=== PATIENT | female | born 1960 | race Caucasian/White ===

== ENCOUNTER → 2017-07-30 | Outpatient (CLI) | payer OTHER ==
[~2017-07-30] MED LIST: AMOX-559 PO; ATOR20TA22 PO; CALC-18 PO; CHOL200021 PO; CIP500 PO; FERR324T23 PO; FEXO30TA36 PO; FLU10 PO; HYDR-4309 PO; INUL1TAB PO; LOPE1TAB PO; LORA-799 PO; MECL25TA9 PO; MES400 PO; METR-1 PO; MULT1TAB64 PO; ONDA4TAB PO; PRO25 PO; PROBIOTIC PO; RANI-366 PO; SIMV-49 PO; SIMV5TAB60 PO; [UNRECOGNIZED DRUG - CODE] PO; [UNRECOGNIZED DRUG - CODE] PR
[2017-07-30 09:39] LABS: PLATELET COUNT, AUTOMATED 210 K/uL (150-450)
== END ==
LOC: LAB 09:23
PROVIDERS: ATTEND Emergency Medicine
DX: E55.9 Vitamin D deficiency, unspecified (principal); R53.83 Other fatigue
CPT/HCPCS: 36415; 82306; 85025

== ENCOUNTER → 2017-08-18 | Outpatient (CLI) | payer OTHER | LOC: RESP 01:38 | PROVIDERS: ATTEND Emergency Medicine | DX: G47.33 Obstructive sleep apnea (adult) (pediatric) (principal) ==

== ENCOUNTER → 2017-08-21 | Outpatient (CLI) | payer OTHER ==
--- NOTE | 2017-08-21 15:09 | RADIOLOGY IMAGING REPORT ---
FACILITY: [facility] PATIENT NAME: MICHELE BROOKS : [id number] MR: [id number] V: [id number] EXAM DATE: ORDERING PHYSICIAN: LOGAN BAXTER TECHNOLOGIST: Hanane Vizcaino PROCEDURE:BILATERAL DIGITAL SCREENING MAMMOGRAM WITH CAD ASSISTED INTERPRETATION & 3D TOMOSYNTHESIS COMPARISON:Prior mammograms 06/26/16, 06/26/15, 06/23/14, 06/01/14, 04/01/12, 03/12/11. INDICATIONS:SCREENING FINDINGS: Moderately dense fibroglandular tissue is seen throughout the breasts. The parenchymal pattern has remained stable allowing for difference in mammographic technique & patient positioning. There is no evidence of malignant appearing mass, malignant appearing calcifications or other secondary sign of malignancy in either breast. DIAGNOSTIC CATEGORY 1--NEGATIVE. RECOMMENDATIONS: ROUTINE MAMMOGRAM AND CLINICAL EVALUATION. IMPRESSION: BIRADS 1: Negative. No significant abnormality is seen. Dictated by: Ana Monet M.D. on 08/21/2017 at 14:40 Transcribed by: ERIC on 08/21/2017 at 14:46 Approved by: Ana Monet M.D. on 08/21/2017 at 15:08 [facility]
== END ==
LOC: MAMO 01:56
PROVIDERS: ATTEND Emergency Medicine
DX: Z12.31 Encounter for screening mammogram for malignant neoplasm of breast (principal)
CPT/HCPCS: 77063; 77067

== ENCOUNTER 2017-10-12 11:40 | Emergency (ER) | payer OTHER ==
--- NOTE | 2017-10-12 11:52 | ER Report ---
History and Physical Time Seen By MD: 11:52 HPI/ROS 57-year-old female with a mechanical fall. She fell onto her right wrist, right knee and the right forehead. No loss of consciousness. No neck pain. No focal neuro deficits, weakness, or numbness. She does not take any anticoagulant medications. Rolf of her pain upon presentation is in her right wrist. Remainder of the 14 system rev: Yes Allergies: Coded Allergies: cefaclor (Verified Allergy, Intermediate, 10/12/17) propoxyphene (Verified Allergy, Mild, NAUSEA, 10/12/17) Uncoded Allergies: LACTASE (Allergy, Mild, SINUS PROBLEMS, 09/25/11) Home Meds Active Scripts Tramadol Hcl (TRAMADOL HCL) 50 Mg Tablet, 50 MG PO Q6H Y for PAIN, #12 TAB 0 Refills Prov:FRANCESCO THAKKAR MD 10/12/17 Atorvastatin Calcium (LIPITOR) 20 Mg Tablet, 1 TAB PO QDAY for 90 Days, #90 TAB 3 Refills Prov:JOANNE BRONSON MD 01/30/17 Reported Medications Ferrous Fumarate (FERROUS FUMARATE) 324 Mg Tablet, 324 MG PO DAILY 07/30/17 Ranitidine Hcl (ZANTAC) 150 Mg Tablet, 150 MG PO PRN, TAB 12/10/16 Loratadine (CLARITIN) 10 Mg Tab.rapdis, 10 MG PO PRN 12/10/16 Fluoxetine Hcl (Prozac) 10 Mg Cap, 20 MG PO QDAY, #20 0 Refills 03/15/09 Reviewed Nurses Notes: Yes Old Medical Records Reviewed: Yes Hx Smoking: No Smoking Status: Never Smoker Exposure to Second Hand Smoke?: Yes (Father smoked) Constitutional Vital Sign - Last 24 Hours 10/12/17 10/12/17 10/12/17 10/12/17 11:55 11:58 11:59 12:02 Temp 97.8 Pulse ??? 53 Resp 16 B/P (MAP) 95/49 95/49 (64) 93/56 (68) Pulse Ox 99 O2 Delivery Room Air 10/12/17 10/12/17 10/12/17 10/12/17 12:10 12:25 12:30 12:40 Pulse 57 59 ??? B/P (MAP) 98/57 (71) Pulse Ox 98 97 10/12/17 10/12/17 10/12/17 8/13/18 12:55 13:00 13:15 13:30 Pulse ? 66 ??? B/P (MAP) 111/62 (78) 96/54 (68) Pulse Ox 97 10/12/17 10/12/17 10/12/17 10/12/17 13:45 14:00 14:15 14:30 Pulse 65 58 ? B/P (MAP) 99/59 (72) ???/??? (1665) Pulse Ox 98 97 10/12/17 10/12/17 10/12/17 10/12/17 14:45 14:50 15:00 15:05 Pulse 76 68 76 B/P (MAP) 108/60 (76) Pulse Ox 96 95 96 10/12/17 10/12/17 10/12/17 10/12/17 15:20 15:30 15:35 15:50 Pulse 79 72 72 B/P (MAP) 107/68 (81) Pulse Ox 97 98 97 10/12/17 10/12/17 10/12/17 16:00 16:04 16:05 Pulse ??? B/P (MAP) ???/??? (1665) 112/55 (74) Physical Exam General Appearance: The patient is alert, has no immediate need for airway protection and no current signs of toxicity. HEENT: abrasion, small hematoma to right forehead. PERRIL, EOMI Respiratory: Chest is non tender, lungs are clear to auscultation. Cardiac: regular rate and rhythm Gastrointestinal: Abdomen is soft and non tender, no masses, bowel sounds normal. Musculoskeletal: TTP and deformity of the right wrist. Mild TTP of the right patella Neck: Neck is supple and non tender. Extremities other than her right wrist have full range of motion and are non tender. n/v in tact throughout Skin: No rashes or lesions. DIFFERENTIAL DIAGNOSIS: After history and physical exam differential diagnosis was considered for intracranial hemorrhage, concussion, fractures, dislocation, intra-abdominal trauma Medical Decision Making EKG/Imaging Imaging X-ray: CXR, right wrist, right patella was obtained. I viewed the images myself on the PACS system. My interpretation of the images is: fracture of right distal radius. The radiologist interpretation had no clinically significant variation from this interpretation. Results: CT scan of the right wrist was obtained. The results of the study are intra- articular fracture of the distal radius and fracture of the trapezium. The study was read by the radiologist. I viewed the images myself on the PACS system. ED Course/Re-evaluation ED Course Mechanical fall and subsequent right distal radius fracture as well as trapezium fracture. She is neurovascularly intact both before and after splint placement. His is likely a surgical fracture. I recommended follow-up with either Dr. Cutler or Dr. Bull for discussion of definitive management. Procedure Procedure: Splint placement. A short arm splint was applied by the equipment tech. After application of the splint I returned and re-examined the patient. The splint was adequately immobilizing the joint and distal to the splint the patient's circulation and sensation was intact. Decision to Disposition Date: Oct 12, 2017 Decision to Disposition Time: 15:46 Depart Departure Latest Vital Signs Vital Signs Date Time Temp Pulse Resp B/P (MAP) Pulse Ox O2 Delivery O2 Flow Rate FiO2 10/12/17 16:05 ??? 10/12/17 16:04 112/55 (74) 10/12/17 15:50 97 10/12/17 11:58 97.8 16 Room Air Impression: Primary Impression: Distal radius fracture, right Additional Impression: Trapezium bone fracture, closed Condition: Improved Disposition: HOME OR SELF-CARE Referrals: JEREMY BULL MD, MARK MD New Scripts Tramadol Hcl (TRAMADOL HCL) 50 Mg Tablet 50 MG PO Q6H Y for PAIN, #12 TAB 0 Refills Prov: FRANCESCO THAKKAR MD 10/12/17 Patient Instructions: Wrist Fracture in Adults (ED) Problem Qualifiers Primary Impression: Distal radius fracture, right Encounter type: initial encounter Fracture type: closed Fracture morphology : other intra-articular Qualified Codes: S52.571A - Other intraarticular fracture of lower end of right radius, initial encounter for closed fracture Additional Impression: Trapezium bone fracture, closed Encounter type: initial encounter Fracture alignment: nondisplaced Laterality: right Qualified Codes: S62.174A - Nondisplaced fracture of trapezium [larger multangular], right wrist, initial encounter for closed fracture FRANCESCO THAKKAR MD Oct 12, 2017 11:52
--- NOTE | 2017-10-12 13:36 | RADIOLOGY IMAGING REPORT ---
FACILITY: [facility] [place] PATIENT NAME: Josefina Drake : 1960 MR: [id number] V: [id number] EXAM DATE: ORDERING PHYSICIAN: FRANCESCO THAKKAR TECHNOLOGIST: Location: Patient: Josefina Drake : 1960 Visit/Account:[id number] Date of Sevice: 10/12/2017 CT Head without contrast Indication: Head trauma after fall. Comparison: 08/06/2015. Technique: Axial CT images were obtained through the brain from the skull base to the vertex without administration of IV contrast. Reformatted coronal and sagittal images were also obtained. One of the following dose optimization techniques was utilized in the performance of this exam: autom ated exposure control; adjustment of the mA and/or kV according to the patient's size; or use of an i terative reconstruction technique. Specific details can be referenced in the facility's radiology CT exam operational policy. Findings: No evidence of mass, mass effect, or midline shift. No acute intracranial hemorrhage or acute territorial infarction. No extra-axial fluid collection or hydrocephalus. No abnormal density. Moncada/white matter differentiat ion appears normal. Bony structures show no fractures or lesions. Minimal fluid seen in the left sphenoid sinus. The remaining sinuses and mastoids visualized are janet r. Mild rightward deviation nasal septum. IMPRESSION: 1. No acute intracranial abnormality. No fracture. 2. Minimal left sphenoid sinus disease. Report Dictated By: Lance Flores at 10/12/2017 1:28 PM Report E-Signed By: Lance Flores at 10/12/2017 1:32 PM WSN:[id number]
--- NOTE | 2017-10-12 13:39 | RADIOLOGY IMAGING REPORT ---
[place] [facility] [place]IENT NAME: Josefina Drake : 1960 MR: [id number] V: [id number] EXAM DATE: ORDERING PHYSICIAN: FRANCESCO THAKKAR TECHNOLOGIST: Location: [facility] Patient: Josefina Drake : 1960 Visit/Account:[id number] Date of Sevice: 10/12/2017 2 VIEWS CHEST INDICATION: Fall onto right side. COMPARISON: None available FINDINGS: Cardiomediastinal silhouette and pulmonary vessels within normal limits. There is no focal infiltrate or lobar consolidation. There is no pneumothorax or pleural effusion. No nodule. Upper abdomen is unremarkable. No acute bony abnormality. IMPRESSION: 1. No acute cardiopulmonary process. No indication of thoracic trauma. Report Dictated By: Lance Flores at 10/12/2017 1:32 PM Report E-Signed By: Lance Flores at 10/12/2017 1:34 PM WSN:[id number]
[2017-10-12] MEDS ORDERED: IBUPROFEN 600 MG TAB TH PO ONE (14:00)
[2017-10-12] MEDS ORDERED: IBUPROFEN 600 MG TAB PO ONE (14:10)
--- NOTE | 2017-10-12 14:10 | RADIOLOGY IMAGING REPORT ---
FACILITY: [facility] PATIENT NAME: Josefina Drake : 1960 MR: [id number] V: [id number] EXAM DATE: ORDERING PHYSICIAN: FRANCESCO THAKKAR TECHNOLOGIST: Location: [facility] [place] Patient: Josefina Drake : 1960 Visit/Account:[id number] Date of Sevice: 10/12/2017 FOREARM RIGHT Indication: Right forearm pain after fall. Comparison: None available Findings: 2 views of the right forearm shows a distal radial fracture which is mainly a vertical type fracture the anterior medial radius this appears to extend into the articular surface with some distraction se en anteriorly. No other indication of fracture or dislocation. No bony lesions. No periosteal abnorma lity. Soft tissues show mild edema around the wrist. No radiopaque foreign body. IMPRESSION: 1. Right distal radial fracture with mild distraction. Report Dictated By: Lance Flores at 10/12/2017 2:03 PM Report E-Signed By: Lance Flores at 10/12/2017 2:06 PM WSN:[id number]
--- NOTE | 2017-10-12 14:13 | RADIOLOGY IMAGING REPORT ---
FACILITY: [facility] PATIENT NAME: Josefina Drake : 1960 MR: [id number] V: [id number] EXAM DATE: ORDERING PHYSICIAN: FRANCESCO THAKKAR TECHNOLOGIST: Location: [facility] Patient: Josefina Drake : 1960 Visit/Account:[id number] Date of Sevice: 10/12/2017 WRIST RIGHT MIN 3 VIEW Indication: Right wrist pain after fall. Comparison: None Available Findings: 3 views of the right wrist. The distal radius does show a mildly distracted fracture the anterior med ial aspect which extends to the articular surface. No other fracture or dislocation. No bony lesion o r periosteal abnormality. No significant degenerative changes. Soft tissue swelling. No radiopaque fo reign body. IMPRESSION: 1. Distal right radial fracture with mild distraction. Report Dictated By: Lance Flores at 10/12/2017 2:07 PM Report E-Signed By: Lance Flores at 10/12/2017 2:08 PM WSN:[id number]
--- NOTE | 2017-10-12 14:15 | RADIOLOGY IMAGING REPORT ---
[place] [facility] [place] Josefina Drake : 1960 MR: [id number] V: [id number] EXAM DATE: ORDERING PHYSICIAN: FRANCESCO THAKKAR TECHNOLOGIST: Location: [facility] [place] Patient: Josefina Darke : 1960 Visit/Account:[id number] Date of Sevice: 10/12/2017 KNEE 3 VIEW RIGHT Indication: Right knee pain after fall. Comparison: 06/04/2014. Findings: 3 views right knee were obtained. No fracture or dislocation. No joint effusion. No bony lesion. No significant degenerative changes. S oft tissues are unremarkable. IMPRESSION: 1.No acute osseous abnormality of the right knee Report Dictated By: Lance Flores at 10/12/2017 2:08 PM Report E-Signed By: Lance Flores at 10/12/2017 2:10 PM WSN:[id number]
--- NOTE | 2017-10-12 15:04 | RADIOLOGY IMAGING REPORT ---
FACILITY: [facility] PATIENT NAME: Josefina Drake : 1960 MR: [id number] V: [id number] EXAM DATE: ORDERING PHYSICIAN: FRANCESCO THAKKAR TECHNOLOGIST: Location: [facility] [place] Patient: Josefina Drake : 1960 Visit/Account:[id number] Date of Sevice: 10/12/2017 WRIST RIGHT W/O CONTRAST COMPARISON: Right wrist and forearm radiographs October 12, 2017 HISTORY: Intra-articular fracture pain. TECHNIQUE: Noncontrast axial CT of the right wrist with coronal and sagittal reformats. One of the following dose optimization techniques was utilized in the performance of this exam: auto mated exposure control; adjustment of the mA and/or kV according to patient size; or use of iterative reconstruction technique. Specific details can be referenced in the facility's radiology CT exam op erational policy. CONTRAST: None. FINDINGS: BONES : There is an acute mildly comminuted intra-articular fracture of the distal radial metaphysis , with both oblique and transverse components extending to the radiocarpal and distal radioulnar join ts, without significant widening of either. The distal ulna is intact. Dominant radial styloid fractu re fragment is displaced dorsally by up to 3 mm. Anteriorly there is also 3 mm of anterior displaceme nt. No significant fracture fragment distraction. The dominant intra-articular fracture line extends to the articular surface of the radius across from the scapholunate ligament. Scapholunate alignment is normal. Nondisplaced longitudinal fracture of the trapezium, best seen coronal series 5 image 35 and sagittal series 6 image 73. The distal fracture line extends to the posterior margin of the first CMC joint b ased on the sagittal series. The rest of the carpal bones and the visualized metacarpal bases are intact. FLUID: Small radiocarpal effusion. No drainable soft tissue fluid collection. SOFT TISSUES: Diffuse soft tissue edema. Pronator quadratus muscle thickness and low-density suggest s muscle edema/strain.. No focal muscle atrophy. OTHER: Negative. IMPRESSION: 1. Acute mildly comminuted intra-articular fracture of the distal radial metaphysis, with components extending to the radiocarpal and distal radioulnar joints, with up to 3 mm of dorsal and anterior di splacement of the dominant fracture fragments. 2. Nondisplaced longitudinal fracture of the right trapezium with the distal fracture line extending to the posterior margin of the first CMC joint. 3. Small radiocarpal effusion with pronator quadratus muscle edema. Report Dictated By: Everett Cagle at 10/12/2017 2:47 PM Report E-Signed By: Everett Cagle at 10/12/2017 2:59 PM WSN:[id number]
[2017-10-12] MEDS ORDERED: TRAM-420 PO (15:47)
[2017-10-12 16:04] VITALS: BP 112/55
== END 2017-10-12 16:10 | disposition home or self-care (01) ==
LOC: ER 12:00
DX: S52.571A Other intraarticular fracture of lower end of right radius, initial encounter for closed fracture (principal); S62.174A Nondisplaced fracture of trapezium [larger multangular], right wrist, initial encounter for closed fracture
CPT/HCPCS: 29125; 70450; 71046; 73090; 73110; 73200; 73562; 99285; A4565

== ENCOUNTER → 2017-11-23 | Outpatient (CLI) | payer OTHER ==
[~2017-11-23] MED LIST changes: +TRAM-420 PO
== END ==
LOC: LAB 11:34
PROVIDERS: ATTEND Emergency Medicine
DX: G62.9 Polyneuropathy, unspecified (principal); M85.80 Other specified disorders of bone density and structure, unspecified site
CPT/HCPCS: 36415; 82310; 82607; 83970; 84160; 84165; 84207

== ENCOUNTER → 2017-12-17 | Outpatient (CLI) | payer OTHER ==
[~2017-12-17] MED LIST changes: +GADOBENATE 529MG/1ML 15ML VIAL IVP ONE; -HYDR-4309 PO; +HYDR-653 PO
--- NOTE | 2017-12-17 13:52 | RADIOLOGY IMAGING REPORT ---
FACILITY: [facility] - [place] PATIENT NAME: Josefina Drake : 1960 MR: [id number] V: [id number] EXAM DATE: ORDERING PHYSICIAN: LOGAN BAXTER TECHNOLOGIST: Location: [facility] Patient: Josefina Drake : 1960 Visit/Account:[id number] Date of Sevice: 12/17/2017 EXAMINATION: MRI Brain without intravenous contrast MRI Brain with intravenous contrast MRI Cervical spine without intravenous contrast MRI Cervical spine with intravenous contrast HISTORY: Recurrent falls. COMPARISON: None available. TECHNIQUE: Multi-planar, multi-sequence brain and cervical spine MRI was performed before and after IV gadolinium. CONTRAST: 15 mL of IV MultiHance FINDINGS: BRAIN: Brain volume: Normal. Sagittal midline structures: Negative. Ventricles: Negative. Acute ischemic changes: None. Hemorrhage: None. Masses / edema: None. Enhancement: Negative. Moncada-white: Negative. White matter: Mild patchy FLAIR hyperintensity in the bilateral frontal white matter. Vessels: Negative. Extra-axial: None. Calvarium / scalp: Negative. Skull base: Negative. Visualized sinuses / orbits: Rightward nasal septal deviation. Visualized upper neck: Negative. CERVICAL SPINE: Alignment: Normal. Vertebral marrow signal: Negative. Cranio-cervical junction: Negative. Soft tissues: Negative. Cervical cord: Negative. Enhancement pattern: Negative. Disc Spaces: C1-2: Negative. C2-3: Negative. C3-4: Mild disc bulge and left facet hypertrophy. No significant stenosis. C4-5: Mild circumferential disc osteophyte complex and right facet hypertrophy. No significant spinal canal or left neural foraminal stenosis. Mild to moderate right neural foraminal stenosis. C5-6: Mild circumferential disc osteophyte complex and uncovertebral hypertrophy. No significant spin al canal stenosis. Mild right neural foraminal stenosis. C6-7: Mild circumferential disc osteophyte complex. No significant stenosis. C7-T1: Negative. IMPRESSION: 1. Mild chronic white matter disease in the frontal lobes, nonspecific but most likely representing c hronic microvascular ischemia. No abnormal signal in the cervical spinal cord. 2. Mild multilevel cervical spondylosis. Report Dictated By: Frank Goldstein MD at 12/17/2017 1:36 PM Report E-Signed By: Frank Goldstein MD at 12/17/2017 1:48 PM WSN:[email or web address]
--- NOTE | 2017-12-17 13:53 | RADIOLOGY IMAGING REPORT ---
[place] [facility] [place] NAME: Josefina Drake : 1960 MR: [id number] V: [id number] EXAM DATE: ORDERING PHYSICIAN: LOGAN BAXTER TECHNOLOGIST: Location: [facility] - [place] Patient: Josefina Drake : 1960 Visit/Account:[id number] Date of Sevice: 12/17/2017 EXAMINATION: MRI Brain without intravenous contrast MRI Brain with intravenous contrast MRI Cervical spine without intravenous contrast MRI Cervical spine with intravenous contrast HISTORY: Recurrent falls. COMPARISON: None available. TECHNIQUE: Multi-planar, multi-sequence brain and cervical spine MRI was performed before and after IV gadolinium. CONTRAST: 15 mL of IV MultiHance FINDINGS: BRAIN: Brain volume: Normal. Sagittal midline structures: Negative. Ventricles: Negative. Acute ischemic changes: None. Hemorrhage: None. Masses / edema: None. Enhancement: Negative. Moncada-white: Negative. White matter: Mild patchy FLAIR hyperintensity in the bilateral frontal white matter. Vessels: Negative. Extra-axial: None. Calvarium / scalp: Negative. Skull base: Negative. Visualized sinuses / orbits: Rightward nasal septal deviation. Visualized upper neck: Negative. CERVICAL SPINE: Alignment: Normal. Vertebral marrow signal: Negative. Cranio-cervical junction: Negative. Soft tissues: Negative. Cervical cord: Negative. Enhancement pattern: Negative. Disc Spaces: C1-2: Negative. C2-3: Negative. C3-4: Mild disc bulge and left facet hypertrophy. No significant stenosis. C4-5: Mild circumferential disc osteophyte complex and right facet hypertrophy. No significant spinal canal or left neural foraminal stenosis. Mild to moderate right neural foraminal stenosis. C5-6: Mild circumferential disc osteophyte complex and uncovertebral hypertrophy. No significant spin al canal stenosis. Mild right neural foraminal stenosis. C6-7: Mild circumferential disc osteophyte complex. No significant stenosis. C7-T1: Negative. IMPRESSION: 1. Mild chronic white matter disease in the frontal lobes, nonspecific but most likely representing c hronic microvascular ischemia. No abnormal signal in the cervical spinal cord. 2. Mild multilevel cervical spondylosis. Report Dictated By: Frank Goldstein MD at 12/17/2017 1:36 PM Report E-Signed By: Frank Goldstein MD at 12/17/2017 1:48 PM WSN:[id number]
== END ==
LOC: MRI 01:16
PROVIDERS: ATTEND Emergency Medicine
DX: M47.892 Other spondylosis, cervical region (principal); R90.82 White matter disease, unspecified
CPT/HCPCS: 70553; 72156; A9577

== ENCOUNTER 2018-01-06 09:00 | Outpatient (RCR) | payer OTHER ==
--- NOTE | 2017-11-27 13:53 | PT INITIAL EVALUATION ---
MEDICAL DIAGNOSIS: R shoulder stiffness, adhesive capsulitis TREATMENT DIAGNOSIS: Same DATE OF ONSET: 10/12/17 SUBJECTIVE: Josefina Drake presents to PT for R shoulder stiffness, pain and adhesive capsulitis made worse with a fall at home 10/12/17 when she sustained a R distal radius fracture (ORIF 10/22/17). She reports she's been falling for unknown reasons often, injuring herself three times, including this wrist fracture. She will have our OT eval and treat her R wrist and hand. She's right-handed. Pain is 5/10 at night but doesn't awaken her once she falls to sleep. Pain location is R shoulder and described as ache, sharp grab. Pain scale is 7 on a ten point pain scale. Pain is worse with abduction, donning sleeves, pulling tops overhead, carrying, reaching for dishes, washing hair and better with arm at side. REHAB PROBLEM LIST: Increased Pain Decreased ROM Decreased Strength Decreased Function Decreased Mobility PREVIOUS MEDICAL HISTORY: B knee fractures (falls), R wrist fracture, 2000 L elbow and wrist fracture, fibromyalgia. 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 OBJECTIVE: Posture: Protracted and depressed R shoulder. ROM: R shoulder A/PROM, in degrees: flexion 102/110, abduction 76/80 PROM with severe pain, extension 50/53, ER 45/45 at 60 deg. scaption, severe pain, hz. adduction 7/10. All A/PROM with shoulder pain. Strength: R supraspinatus 4-/5, mild pain, biceps 3-/5, due to pain, ER 4/5, IR 5/-/5, triceps 5-/5. Inferior angle tipping with hands on hips. Palpation: Painful R bicipital tendon in the groove, rotator cuff tendons Gait: Normal scapulohumeral rhythm through available AROM. ASSESSMENT: Josefina Drake presents with adhesive capsulitis causing impingement symptoms, limiting function. Short Term Goals 4 weeks: Josefina reports dressing, knitting are with R shoulder pain 3-4/10, AROM R shoulder abduction 110 degrees. 8 weeks: R shoulder to prior function with shoulder pain 1-2/10, R shoulder AROM WNL. Patient's Goals Prior level of function with R shoulder, pain free. PLAN: Patient to be seen for Manual Therapy Strengthening/condition Ice/Heat Range of Motion Spinal Stabilization Stretching Iontophoresis Electrical Stim Home Exercise Program 2x/Week for 2 Months Thank you for this referral. If you have any questions, comments, or concerns about this report or plan, please contact me at . [facility]
--- NOTE | 2017-11-30 15:49 | OT INITIAL EVALUATION ---
SUBJECTIVE: Josefina presents to outpatient OT s/p ORIF of right wrist distal radius fracture. Date of onset: 10/12/17. Date of surgery: 10/22/17. Pt is right hand dominant. Josefina reports increased difficulty with ADLs (combing hair), IADLs (opening jars/stirring food) and leisure activities (knitting/quilting). Previous Medical History: Please refer to EMR Current Limitations: Decreased ROM, Increased edema, Decreased function, Decreased ADLs/IADLs, Decreased strength Occupation: Retired. 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. OBJECTIVE: ROM: Right Left Pronation WFL WFL Supination 45 deg. 80 deg. Wrist Flexion 40 deg. 70 deg. Wrist Extension 45 deg. 75 deg. Strength: Car Stower Right = 17# (Age/gender normative=57.3#) Left= 61# (Age/gender normative=47.3#) Lateral Pinch Right = 9.6# (Age/gender normative=15.7#) *Pain with release Left= 17# (Age/gender normative=14.7#) Tripod Pinch Right = 2.6# (Age/gender normative=16.0#) Left= 13# (Age/gender normative=15.4#) Sensation: Pt reports no concerns with sensation (no numbness/tingling, able to recognize hot/cold) Special Test: 9 Hole Peg Test (dexterity) Right= 22 seconds (Age/gender normative=17.8 seconds) Left=19seconds (Age/gender normative=19.4 seconds) Edema: Wrist: Right=18cm Left=15.5cm Thumb CMC: Right=9cm Left=8cm Palmar arch: Right=19cm Left=18cm ASSESSMENT Josefina presents to outpatient OT with notable limitations in right hand/forearm strength and ROM (see objective measures above). She will benefit from skilled OT services to decrease edema, improve strength and ROM for increased engagement in ADLs/IADLs. Short Term Goals 1. 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 2 Pt will improve right forearm supination by 15 degrees to improve ROM for engagement in ADLs. 3. Pt will improve right wrist extension by 15 degrees to improve ROM for engagement in ADLs. 4. Pt will improve right wrist flexion by 15 degrees to improve ROM for engagement in ADLs. 5. Pt will improve pinch strength by 5 pounds in order to improve strength for ADLs/IADLs. 6. Pt will be (I) HEP. PLAN: 2x/week x 8 weeks Thank you for this referral. If you have any questions, concerns, or comments about this report or plan, please contact me at [phone]. Katalina Lara MS, OTR/L Occupational Therapist [employer]
--- NOTE | 2017-12-30 11:14 | PT PLAN OF CARE ---
Physician: Dr. John Martel Patient is being seen: 2x/week Therapist: Yesenia Ayoub PT Medical Diagnosis: R shoulder stiffness, adhesive capsulitis Treatment Diagnosis: Same Date of Onset: 10/12/17 Date of Initial Evaluation: 11/27/17 Date patient was last seen: 12/30/17 Number of treatments: 10 Number of cancellations/No shows: 0 INTERVENTIONS: R shoulder ROM, Muscle Balancing, Strengthening, E-stim, Ice/Heat, Home Exercise Program GOALS: 4 weeks: Josefina reports dressing, knitting are with R shoulder pain 3-4/10 (not met, 5-7/10), AROM R shoulder abduction 110 degrees (progressing). 8 weeks: R shoulder to prior function with shoulder pain 1-2/10, R shoulder AROM WNL. (not met) PATIENT'S GOAL: Prior level of function with R shoulder, pain free. (progressing) Patient Compliance: Excellent Prognosis: Excellent Reasons for continuing therapy: S: Josefina relates she's able to drive 6 hours without shoulder pain that day, pain 5-7/10 the next day, strong bicipital pain. She rates night time R shoulder pain 7/10, intermittent day pain 5/10. Posture: Still protracted and depressed R shoulder. ROM: R shoulder A/PROM, in degrees: flexion 100/110, abduction 75/80 PROM with impingement pain, ext. 40/45, ER 45/60 at 60 deg. scaption, hz. adduction 10/20, IR AROM R posterior hip. Strength: NT today. Palpation: Painful R bicipital tendon in the groove, rotator cuff tendons Special Tests: R scapulothoracic joint mobility is improving, R glenohumeral joint remains tight. A/P: Josefina Drake remains tight, hypomobile but is starting to get relief from shoulder pain. She's doing well with therapeutic exercise for strengthening and muscle balancing. If you agree, we'll continue at 2x/week. She will see you next week. Thank you. EFRAIN
--- NOTE | 2018-01-04 12:32 | OT PLAN OF CARE ---
PROGRESS NOTE SUBJECTIVE: Josefina presents to outpatient OT s/p ORIF of right wrist distal radius fracture. Date of onset: 10/12/17. Date of surgery: 10/22/17. Pt is right hand dominant. Josefina reports improved tolerance and independence with all ADLs/IADLs. She reports no concerns/complaints with left wrist but is concerned with continual pain and decreased function in right shoulder. Pt is seeing PT for right shoulder. Previous Medical History: Please refer to EMR Current Limitations: Decreased ROM, Increased edema, Decreased function, Decreased ADLs/IADLs, Decreased strength Occupation: Retired. 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 OBJECTIVE: ROM: Right Left Pronation WFL WFL Supination 70 deg.(+25) 80 deg. Wrist Flexion 50 deg.(+10) 70 deg. Wrist Extension 60 deg.(+15) 75 deg. Strength: Heat Seal Operator Right = 28# (+11#) (Age/gender normative=57.3#) Left= 61# (Age/gender normative=47.3#) Lateral Pinch Right = 11# (+2#) (Age/gender normative=15.7# Left= 17# (Age/gender normative=14.7#) Tripod Pinch Right = 9# (+6.4#) (Age/gender normative=16.0#) Left= 13# (Age/gender normative=15.4#) Sensation: Pt reports no concerns with sensation (no numbness/tingling, able to recognize hot/cold) Special Test: 9 Hole Peg Test (dexterity) Right= 22 seconds (Age/gender normative=17.8 seconds) Left=19seconds (Age/gender normative=19.4 seconds) Edema: Wrist: Right=16.5cm (-1.5cm) Left=15.5cm Thumb CMC: Right=9cm Left=8cm Palmar arch: Right=19cm Left=18cm ASSESSMENT Josefina presents to outpatient OT with notable limitations in right hand/forearm strength and ROM (see objective measures above). She will benefit from skilled OT services to decrease edema, improve strength and ROM for increased engagement in ADLs/IADLs. Short Term Goals 1. Pt will improve video and sound recorder strength by 10 pounds to improve tolerance for IADLs. GOAL MET. 2 Pt will improve right forearm supination by 15 degrees to improve ROM for engagement in ADLs. GOAL MET. 3. Pt will improve right wrist extension by 15 degrees to improve ROM for engagement in ADLs. GOAL MET. 4. Pt will improve right wrist flexion by 15 degrees to improve ROM for engagement in ADLs. Progressing towards. 5. Pt will improve pinch strength by 5 pounds in order to improve strength for ADLs/IADLs. Progressing towards. 6. Pt will be (I) HEP. Progressing towards. PLAN: Plan for one more visit to ensure compliance with HEP. Pt agreeable with plan. Thank you for this referral. If you have any questions, concerns, or comments about this report or plan, please contact me at [phone]. Katalina Lara MS, OTR/L Occupational Therapist EFRAIN
[~2018-01-06 09:00] MED LIST changes: +FLUO20TA2 PO; -GADOBENATE 529MG/1ML 15ML VIAL IVP ONE
--- NOTE | 2018-01-06 09:54 | PT PLAN OF CARE ---
Physician: Dr. John Martel Patient is being seen: 2x/week Therapist: Yesenia Ayoub, PT Medical Diagnosis: R shoulder stiffness, adhesive capsulitis Treatment Diagnosis: Same Date of Onset: 10/12/17 Date of Initial Evaluation: 11/27/17 Date patient was last seen: 01/06/18 Number of treatments: 11 Number of cancellations/No shows: 0 INTERVENTIONS: Manual Therapy Strengthening/condition Ice/Heat Range of Motion Stretching Electrical Stim Home Exercise Program GOALS: 4 weeks: Josefina reports dressing, knitting are with R shoulder pain 3-4/10 (met), AROM R shoulder abduction 110 degrees (not met). 8 weeks: R shoulder to prior function with shoulder pain 1-2/10, R shoulder AROM WNL. (both not met) PATIENT'S GOAL: Prior level of function with R shoulder, pain free. (both not met) Patient Compliance: Excellent Prognosis: Excellent Reasons for discontinuing therapy: S: Josefina's decided she'd like to continue ROM via HEP. She reports she's knitted a shawl in small segments of time with shoulder pain 3/10. She's going to try independent pool therapy. O: One visit since last POC with mild improvement AROM: Posture: Protracted and depressed R shoulder. R hand is mottled and glossy. ROM: R shoulder AROM, in degrees: flexion 100, abduction 85, ER 55 at 60 deg. scaption, hz. adduction 10, IR AROM R posterior hip. Strength: R supraspinatus 4-/5, pain limited, biceps 4-/5, pain limited. Palpation: Painful R bicipital tendon in the groove, anterior deltoid, rotator cuff tendons Special Tests: Hypomobile R shoulder joints, positive impingement zone. A/P: Josefina Drake has chosen to work ROM via HEP. I've instructed her in both shoulder stretching and cervical AROM/stretching (hand). Per her request, I'll DC PT to HEP. Thank you. EFRAIN
--- NOTE | 2018-01-07 08:47 | OT DISCHARGE SUMMARY ---
DISCHARGE NOTE SUBJECTIVE: Josefina presented to outpatient OT s/p ORIF of right wrist distal radius fracture. Date of onset: 10/12/17. Date of surgery: 10/22/17. Pt is right hand dominant. Josefina reports improved tolerance and independence with all ADLs/IADLs. She reports no concerns/complaints with right wrist but is concerned with continual pain and decreased function in right shoulder. Pt has seen an orthopedic surgeon re: shoulder pain and plans to address shoulder pain via recommendation from this physician. Previous Medical History: Please refer to EMR Occupation: Retired. 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 OBJECTIVE: ROM: Right Left Pronation WFL WFL Supination 70 deg.(+25) 80 deg. Wrist Flexion 55 deg.(+15) 70 deg. Wrist Extension 60 deg.(+15) 75 deg. Strength: Self Contained Behavior Unit Teacher Right = 28# (+11#) (Age/gender normative=57.3#) Left= 61# (Age/gender normative=47.3#) Lateral Pinch Right = 11# (+2#) (Age/gender normative=15.7# Left= 17# (Age/gender normative=14.7#) Tripod Pinch Right = 9# (+6.4#) (Age/gender normative=16.0#) Left= 13# (Age/gender normative=15.4#) Sensation: Pt reports no concerns with sensation (no numbness/tingling, able to recognize hot/cold) Special Test: 9 Hole Peg Test (dexterity) Right= 22 seconds (Age/gender normative=17.8 seconds) Left=19seconds (Age/gender normative=19.4 seconds) Edema: Wrist: Right=16.5cm (-1.5cm) Left=15.5cm Thumb CMC: Right=9cm Left=8cm Palmar arch: Right=19cm Left=18cm ASSESSMENT Josefina presented to outpatient OT with notable limitations in right hand/forearm strength and ROM (see objective measures above). She has met all skilled OT goals and is independent with all HEPs (theraputty/ther ex/AROM/AAROM/PROM). Josefina is agreeable to discharge from skilled OT services with plans to continue HEPs and engagement in ADLs/IADLs to continue functional improvements. Short Term Goals 1. Pt will improve tattoo and body artist strength by 10 pounds to improve tolerance for IADLs. GOAL MET. 2 Pt will improve right forearm supination by 15 degrees to improve ROM for engagement in ADLs. GOAL MET. 3. Pt will improve right wrist extension by 15 degrees to improve ROM for engagement in ADLs. GOAL MET. 4. Pt will improve right wrist flexion by 15 degrees to improve ROM for engagement in ADLs. GOAL MET. 5. Pt will improve pinch strength by 5 pounds in order to improve strength for ADLs/IADLs. GOAL MET. 6. Pt will be (I) HEP. GOAL MET. PLAN: Josefina is agreeable to discharge from skilled OT services with plans to continue HEPs and engagement in ADLs/IADLs to continue functional improvements. Pt encouraged to contact this OT with any further questions/concerns as time progresses. Thank you for this referral. If you have any questions, concerns, or comments about this report or plan, please contact me at [phone]. Katalina Lara MS, OTR/L Occupational Therapist EFRAIN
== END 2018-01-06 18:00 | disposition home or self-care (01) ==
LOC: PT 09:00
PROVIDERS: ATTEND Orthopaedic Surgery
DX: M25.611 Stiffness of right shoulder, not elsewhere classified (principal); M75.01 Adhesive capsulitis of right shoulder; S52.501D Unspecified fracture of the lower end of right radius, subsequent encounter for closed fracture with routine healing; R29.6 Repeated falls; Y92.019 Unspecified place in single-family (private) house as the place of occurrence of the external cause
CPT/HCPCS: 97162; 97166

== ENCOUNTER → 2018-06-25 | Outpatient (CLI) | payer OTHER ==
[~2018-06-25] MED LIST changes: -SIMV5TAB60 PO; +SIMV5TAB69 PO
[2018-06-25 08:44] LABS: PLATELET COUNT, AUTOMATED 225 K/uL (150-450)
[2018-06-25 09:58] LABS: LDL CHOLESTEROL 96 mg/dl
== END ==
LOC: LAB 08:22
PROVIDERS: ATTEND Emergency Medicine
DX: Z00.00 Encounter for general adult medical examination without abnormal findings (principal); E78.5 Hyperlipidemia, unspecified; G47.33 Obstructive sleep apnea (adult) (pediatric); M85.80 Other specified disorders of bone density and structure, unspecified site
CPT/HCPCS: 36415; 82040; 82247; 82306; 82310; 82374; 82435; 82465; 82565; 82607; 82947; 83718; 84075; 84132; 84155; 84295; 84450; 84460; 84478; 84520; 85025